=== PATIENT | male | born 1940 | race African-American/Black ===

== ENCOUNTER 2018-03-13 07:49 | Day surgery (SDC) | payer OTHER, MEDICAID ==
[~2018-03-13] VITALS: Ht 180.3 cm; Wt 74.8 kg
[~2018-03-13 07:49] MED LIST: CEFAZOLIN SOD 1 GM/ ISO 50 ML PREMIX IV ONE
[2018-03-13] MEDS ORDERED: BUPIVACAINE /EPINEPHRINE/PF 0.25% 30 ML VIAL INJ ONE (10:36)
[2018-03-13] MEDS ORDERED: SEVOFLURANE 15 MIN GAS INH ONE (10:36)
[2018-03-13] MEDS ORDERED: LR 1,000 ML IV.SOLN IV ONE (10:36)
[2018-03-13] MEDS ORDERED: fentaNYL CITRATE/PF 100 MCG/2 ML AMP IVP ONE (10:36)
[2018-03-13] MEDS ORDERED: MIDAZOLAM HCL 5 MG/5 ML VIAL IVP ONE (10:36)
[2018-03-13] MEDS ORDERED: PROPOFOL 200MG/ 20ML VIAL (DIPRIVAN) IV ONE (10:36)
[2018-03-13] MEDS ORDERED: POLYMYXIN 500,000/BACIT.10,000 UNITS in NS IRR 1 L IR ONE (11:03)
[2018-03-13] MEDS ORDERED: ONDANSETRON HCL 4 MG/2 ML VIAL IVP PRN (11:30)
[2018-03-13] MEDS ORDERED: fentaNYL CITRATE/PF 100 MCG/2 ML AMP IVP PRN ×2 (11:30)
[2018-03-13] MEDS ORDERED: KETOROLAC TROMETHAMINE 30 MG VIAL IVP PRN (11:30)
[2018-03-13] MEDS ORDERED: D5/0.45 NS 1,000 ML IV SCH (11:34)
[2018-03-13] MEDS ORDERED: HYDROmorphone 1 MG INJ. 1 MG/ML AMPUL IVP PRN (11:45)
[2018-03-13] MEDS ORDERED: HYDROcodone/ACETAMIN 5-325 MG TAB (NORCO/ VICODIN) PO PRN ×2 (11:45)
[2018-03-13 12:34] VITALS: BP_SYST 111
[2018-03-13] MEDS ORDERED: HYDROcodone/ACETAMIN 5-325 MG TAB (NORCO/ VICODIN) ONE (13:34)
== END 2018-03-13 14:15 | disposition home or self-care (01) ==
LOC: SDS 07:49 → SMU 07:50 → SDS 14:15
PROVIDERS: ATTEND Colon & Rectal Surgery
DX: K40.31 Unilateral inguinal hernia, with obstruction, without gangrene, recurrent (principal); I71.4 Abdominal aortic aneurysm, without rupture; J20.9 Acute bronchitis, unspecified; I70.0 Atherosclerosis of aorta; N40.1 Benign prostatic hyperplasia with lower urinary tract symptoms; Z95.1 Presence of aortocoronary bypass graft; I25.119 Atherosclerotic heart disease of native coronary artery with unspecified angina pectoris; E78.5 Hyperlipidemia, unspecified; I10 Essential (primary) hypertension; M15.9 Polyosteoarthritis, unspecified; K21.0 Gastro-esophageal reflux disease with esophagitis; Z79.899 Other long term (current) drug therapy; Z88.8 Allergy status to other drugs, medicaments and biological substances; Z88.2 Allergy status to sulfonamides; E55.9 Vitamin D deficiency, unspecified; Z98.890 Other specified postprocedural states; J44.9 Chronic obstructive pulmonary disease, unspecified; Z82.49 Family history of ischemic heart disease and other diseases of the circulatory system
CPT/HCPCS: 49521; C1781; J0690; J2250; J2704; J3010; J3490; J7120